=== PATIENT | female | born 1995 | race Two or more races ===

== ENCOUNTER 2019-03-02 23:23 | Emergency (ER) | payer SELFPAY ==
[~2019-03-02] VITALS: Ht 172.7 cm; Wt 64.0 kg
[2019-03-03] MEDS ORDERED: DIPHENHYDRAMINE 50MG/ML VIAL IV ONE (01:00)
[2019-03-03] MEDS ORDERED: METOCLOPRAMIDE HCL 10MG/2ML VIAL IV ONE (01:00)
[2019-03-03 01:08] LABS: BASOPHILS % 0.4 % (0.0-2.0); HEMATOCRIT. 39.2 % (36.0-48.0); HEMOGLOBIN. 13.3 g/dL (12.0-16.0); LYMPHOCYTES % 35.5 % (20.0-50.0); MEAN CORPUSCULAR VOLUME 88.3 fL (81.0-99.0); MONOCYTES % 6.9 % (2.0-8.0); NEUTROPHILS % 54.2 % (40.0-76.0); PLATELET 191 x1000/uL (130-400); RED BLOOD CELL COUNT 4.44 mill/uL (4.2-5.4); RED CELL DISTRIBUTION WIDTH 12.5 % (11.6-14.6)
[2019-03-03] MEDS ORDERED: ACETAMINOPHEN 500MG TABLET PO ONE (01:15)
[2019-03-03 01:16] LABS: CHLORIDE 107 mEq/L (98-107); PROTHROMBIN TIME 10.7 sec (9.6-11.0)
[2019-03-03 03:40] VITALS: BP 119/65
== END 2019-03-03 03:41 | disposition home or self-care (01) ==
LOC: ER 23:23
DX: G43.909 Migraine, unspecified, not intractable, without status migrainosus (principal)
CPT/HCPCS: 36415; 70450; 80053; 81025; 85025; 85610; 99284; Z7610; J1200; J2765